=== PATIENT | female | born 1950 | race Caucasian/White ===

== ENCOUNTER 2025-04-19 09:02 | Emergency (ER) | payer MEDICARE, OTHER ==
[~2025-04-19] VITALS: Ht 162.6 cm; Wt 57.5 kg
[~2025-04-19 09:02] MED LIST: SYNTHROID50 MCG PO
[2025-04-19 09:14] LABS: BASOPHILS 1.3 % (0.1-1.2); EOSINOPHILS 2.3 % (0.7-5.8); HEMATOCRIT 44.5 % (34.1-44.9); HEMOGLOBIN 14.6 g/dL (11.2-15.7); LYMPHOCYTES 38.9 % (19.3-51.7); MCH 31.9 PG (25.6-32.2); MCHC 32.8 g/dL (32.2-35.5); MCV 97.4 fL (79.4-94.8); MONOCYTES 10.4 % (4.7-12.5); NEUTROPHILS 47.1 % (34.0-71.1); PLATELET COUNT 180 K/uL (182-369); RBC 4.57 M/uL (3.93-5.22)
[2025-04-19] MEDS ORDERED: ASPIRIN 81 MG CHEW PO ONE (09:15)
[2025-04-19] MEDS ORDERED: ATORVASTATIN CA20 MG PO (09:16)
[2025-04-19] MEDS ORDERED: TOBRAMYCIN-DEXAM5 ML OPTH (09:16)
[2025-04-19] MEDS ORDERED: ADULT ASPIRIN R81 MG PO (09:17)
[2025-04-19 09:37] LABS: ALBUMIN 3.8 g/dL (3.4-5.0); ALBUMIN/GLOBULIN RATIO 1.03 (1.1-2.4); ALKALINE PHOSPHATASE 40 U/L (46-116); ALT (SGPT) 27 U/L (14-59); AST (SGOT) 18 U/L (15-37); BILIRUBIN, TOTAL 0.4 mg/dL (0.2-1.0); BUN/CREATININE RATIO 20.98 (6.0-28.6); CALCIUM 9.5 mg/dL (8.5-10.1); CARBON DIOXIDE 33 mmol/L (21-32); CHLORIDE 105 mmol/L (98-107); CREATININE, SERUM 0.81 mg/dL (0.55-1.02); GLOMERULAR FILTRATION RATE,EST 76 mL/min (>60); MAGNESIUM 2.2 mg/dL (1.8-2.4); PROTEIN, TOTAL 7.5 g/dL (6.4-8.2); UREA NITROGEN 17 mg/dL (7-18)
[2025-04-19 10:09] VITALS: BP 128/79
--- NOTE | 2025-04-19 21:38 | EKG ---
[facility] [address] [facility] [place] [address] Signed Normal sinus rhythm Left axis deviation Septal infarct , age undetermined Abnormal ECG No previous ECGs available Confirmed by Ramiro Pichardo MD () on 04/19/2025 9:38:13 PM Electronically Signed By: RAMIRO PICHARDO MD 04/19/25 2138 PATIENT NAME: ZBIGNIEW KRUGER Electrocardiogram DATE OF : 50 PHYSICIAN: RAMIRO PICHARDO MD REPORT #: [id number] REPORT IS CONFIDENTIAL AND NOT TO BE RELEASED WITHOUT AUTHORIZATION
== END 2025-04-19 10:11 | disposition home or self-care (01) ==
LOC: ED 09:02
PROVIDERS: Emergency Medicine
DX: R07.9 Chest pain, unspecified (principal); Z79.82 Long term (current) use of aspirin; Z79.899 Other long term (current) drug therapy; Z88.6 Allergy status to analgesic agent; Z88.8 Allergy status to other drugs, medicaments and biological substances
CPT/HCPCS: 36415; 71045; 80053; 83735; 84484; 85025; 93005; 93010; 99285-25; A9270

== ENCOUNTER 2025-11-09 11:21 | Emergency (ER) | payer OTHER, MEDICARE ==
[~2025-11-09] VITALS: Ht 162.6 cm; Wt 59.2 kg
[~2025-11-09 11:21] MED LIST changes: +ADULT ASPIRIN R81 MG PO; +ATORVASTATIN CA20 MG PO; +TOBRAMYCIN-DEXAM5 ML OPTH
[2025-11-09] MEDS ORDERED: ACETAMINOPHEN 325 MG TAB PO ONE (12:00)
[2025-11-09] MEDS ORDERED: HYDROCODON-ACE1 EA10 PO (12:10)
[2025-11-09] MEDS ORDERED: HYDROmorphone HCL 1 MG/ML SYR IM ONE (12:15)
[2025-11-09] MEDS ORDERED: IBUPROFEN 400 MG TAB PO ONE (12:15)
[2025-11-09 14:09] VITALS: BP 107/65
[2025-11-13] MEDS ORDERED: VITAMIN C500 M4 PO (14:01)
[2025-11-13] MEDS ORDERED: OMEGA 3 1,0001 EACH PO (14:01)
[2025-11-13] MEDS ORDERED: MULTI VITAMIN1 EACH PO (14:02)
[2025-11-18] MEDS ORDERED: CALCIUM CARBON260 M1 (10:59)
[2025-11-18] MEDS ORDERED: FOSAMAX70 MG PO (11:01)
[2025-11-18] MEDS ORDERED: HYDROCODON-ACE1 EA11 PO (13:21)
== END 2025-11-09 14:06 | disposition home or self-care (01) ==
LOC: ED 11:21
DX: S52.502A Unspecified fracture of the lower end of left radius, initial encounter for closed fracture (principal); W01.0XXA Fall on same level from slipping, tripping and stumbling without subsequent striking against object, initial encounter; Y92.481 Parking lot as the place of occurrence of the external cause; Z79.82 Long term (current) use of aspirin; Z79.899 Other long term (current) drug therapy; Z88.8 Allergy status to other drugs, medicaments and biological substances
CPT/HCPCS: 25605; 73110; 96372; 99283-25; A9270; J1171